=== PATIENT | male | born 1955 | race Two or more races ===

== ENCOUNTER → 2019-02-27 | Day surgery (SDC) | payer OTHER ==
[~2019-02-27] MED LIST: GLUCAGON FOR INJ 1 MG VIAL ONE; HYOSCYAMINE SULFATE 0.5 MG/ML INJ ONE; LIDOCAINE HCL 2% LOCAL INJ 5 ML SDV VIAL INJ ONE; MIDAZOLAM HCL 2 MG/2 ML VIAL ONE; PROPOFOL IV EMULSION 10 MG/ML 50 ML VIAL ONE; ZOLPIDEM TARTRA10 MG PO
[2019-02-27 10:20] VITALS: BP 119/78
--- NOTE | 2019-02-27 13:40 | Operative Report ---
DATE OF PROCEDURE: 02/27/2019 SURGEON: Mirza Mcintosh MD PROCEDURES: Esophagogastroduodenoscopy with biopsies and colonoscopy with polypectomy. INDICATIONS FOR EGD: Upper abdominal pain. INDICATIONS FOR COLONOSCOPY: Colorectal cancer screening. MEDICATIONS: The patient was done under MAC, please see anesthesiologist's note. PROCEDURE IN DETAIL: With the patient in left lateral decubitus position, flexible fiberoptic Olympus gastroscope was introduced into the esophagus under direct visualization without any difficulty. There was some patchy erythema noted in distal esophagus. The scope was then advanced with ease into the stomach. Mucosa overlying the antrum and the body revealed some diffuse erythema and low-grade to moderate edema and biopsies were obtained and sent to stain for H pylori. The pylorus was intubated with ease and the scope was advanced all the way to the second portion of the duodenum. The scope was then withdrawn slowly and biopsies were obtained from the proximal second portion and the duodenal bulb to rule out sprue. The scope was then withdrawn back into the stomach and retroflexed. Mucosa overlying the fundus and cardia appeared to be within normal limits. The scope was then straightened out, it was subsequently withdrawn. The patient tolerated the procedure well. IMPRESSION: 1. Distal esophagitis, mild. 2. Gastritis, biopsied. Biopsies sent to stain for Helicobacter pylori. 3. Rule out sprue. PLAN: Follow up histology. Initiate Protonix 40 mg one p.o. q.a.m. a.c. PROCEDURE IN DETAIL: The patient was then turned around and after adequate lubrication of the anal canal, a flexible fiberoptic Olympus colonoscope was inserted into the rectum with ease and advanced all the way to the cecum. The scope was then withdrawn slowly and mucosa overlying the cecum appeared to be within normal limits. One polyp was noted in the distal ascending colon that was removed per cold snare. The transverse and descending appeared to be within normal limits. One polyp was removed per snare electrocautery in the sigmoid and one polyp was hot biopsied. The rectum grossly appeared to be within normal limits. The scope was then retroflexed into the distal rectum and small internal hemorrhoids were noted, none of which was actively bleeding. The scope was then straightened out, it was subsequently withdrawn. The patient tolerated the procedure well. IMPRESSION: 1. Ascending colon polyp removed per cold snare polypectomy. 2. Sigmoid colon polyps x2, one snared and one hot biopsied. 3. Internal hemorrhoids, none actively bleeding. PLAN: Follow up histology. Initiate high-fiber, low-fat diet. Initiate high-fiber supplement. Start MiraLAX 17 g in a glass of water once daily. The patient might benefit from a followup colonoscopy in 3 years. Mirza Mcintosh MD [facility] [place] /[id number] cc: Yovany Hall DO
--- OUTSIDE RECORDS SUMMARY | 2019-03-02 12:02 | XMS REPORT ---
Author Author [facility] Address Unknown Phone Unavailable Care Team Providers Care [employer] L[employer] Name Role Phone Unavailable Unavailable Payers Payer Name Policy Type Policy Number Effective Date Expiration Date Problems This patient has no known problems. Allergies, Adverse Reactions, Alerts This patient has no known allergies or adverse reactions. Medications This patient has no known medications. Results Test Description Test Time Test Comments Text Results Atomic Results Result Comments - XR C-SPINE 4-5 V 2018-11-10 12:48:00 FAX: Yovany Dawkins DO [phone] [place]: O St: REG Name: [facility] : 1955 Age/S: 62/M [address] [facility] Unit #: [id number] Loc: [place] [address] Phys: Yovany Hall DO Acct: [id number] Dis Date: Status: REG CLI PHONE #: [phone] Exam Date: 11/10/2018 1207 FAX #: [phone] Reason: M54.2 EXAMS: CPT CODE: [id number] XR C-SPINE 4-5 V 33265 HISTORY: M54.2. COMPARISON: None available. Cervical spine series, 5 views: No acute fracture or dislocation. Vertebral body heights are maintained. Narrowed disc space at C6-C7 level. Anterior osteophyte at C6-C7 level. No prevertebral soft tissue swelling. Cervical foramina are widely patent bilaterally. Narrowed uncovertebral joints. Lung apices are clear. Lateral masses are well marginated. IMPRESSION: No acute fracture or dislocation. Vertebral body heights are maintained. Patent foramina. at 1245 Reported and signed by: Arnel Mckinney M.D. CC: Yovany Hall Technologist: ANGELICA Schmidt) Trnscrd Date/Time/By: 11/10/2018 (7129) : By: [email or web address] Orig Print D/T: S: 11/10/2018 (2596) PAGE 1 Signed Report
== END | disposition home or self-care (01) ==
LOC: OR 06:15
PROVIDERS: ATTEND Internal Medicine Gastroenterology
DX: K59.09 Other constipation (principal); D12.2 Benign neoplasm of ascending colon; D12.5 Benign neoplasm of sigmoid colon; K29.50 Unspecified chronic gastritis without bleeding; K20.9 Esophagitis, unspecified; K58.9 Irritable bowel syndrome, unspecified; K21.9 Gastro-esophageal reflux disease without esophagitis; K64.8 Other hemorrhoids; R63.4 Abnormal weight loss; G47.33 Obstructive sleep apnea (adult) (pediatric); Z01.810 Encounter for preprocedural cardiovascular examination
CPT/HCPCS: 43239; 45385; 93005; J1610; J1980; J2001; J2250

== ENCOUNTER → 2019-03-25 | Outpatient (CLI) | payer OTHER ==
[~2019-03-25] MED LIST changes: -GLUCAGON FOR INJ 1 MG VIAL ONE; -HYOSCYAMINE SULFATE 0.5 MG/ML INJ ONE; -LIDOCAINE HCL 2% LOCAL INJ 5 ML SDV VIAL INJ ONE; -MIDAZOLAM HCL 2 MG/2 ML VIAL ONE; -PROPOFOL IV EMULSION 10 MG/ML 50 ML VIAL ONE
--- NOTE | 2019-03-25 17:49 | Diagnostic Imaging Report ---
HISTORY: Postprandial pain ^ABD PAIN TECHNIQUE: Selected images from limited abdominal ultrasound provided for INTERPRETATION: COMPARISON: None. FINDINGS: Pancreas: Visualized portions are normal. No ductal dilatation. Liver: Measures 13.9 cm in sagittal plane. The echotexture is normal. No mass in the visualized portions. Portal Vein: Measures 1.0 cm. Proper directional flow on spectral Doppler interrogation. Biliary Tree: Normal Gallbladder: No evidence of gallstone, sludge or gallbladder wall thickening. Sonographic Fong sign is negative. CBD: 0.3 cm. Right Kidney: 10.0 cm in greatest length. The echotexture is normal. There is no evidence for mass. There is no collecting system dilatation or evidence of obstruction. No renal calculi evident. No adjacent free fluid or fluid collections. Visualized IVC and aorta are poorly visualized due to bowel gas. There is no free fluid. IMPRESSION: No abnormalities to explain abdominal pain. The visualized structures are normal. Signed by: Dr. Justus Sotomayor MD on 03/25/2019 5:46 PM
== END ==
LOC: US 16:50
PROVIDERS: ATTEND Internal Medicine Gastroenterology
DX: R07.89 Other chest pain (principal); R10.9 Unspecified abdominal pain
CPT/HCPCS: 76705

== ENCOUNTER → 2019-03-26 | Outpatient (CLI) | payer OTHER ==
--- NOTE | 2019-03-26 10:55 | Diagnostic Imaging Report ---
Hepatobiliary Scan with Gallbladder Ejection Fraction Clinical information: Chest pain, usually post-prandial Report: Following intravenous administration of 7 millicuries of Tc-99m mebrofenin, dynamic images of the abdomen in the anterior projection were obtained through 60 minutes. Sincalide (CCK analog) 1.5 micrograms was administered intravenously over 30 minutes with additional imaging for determination of gallbladder ejection fraction. Perfusion to the liver is normal. Extraction of tracer from the blood pool by the liver parenchyma is normal. Tracer is seen promptly within the biliary tract. The gallbladder begins to fill by 15 minutes post-injection of tracer and fills adequately. Tracer is seen in the small bowel during the sincalide infusion. The gallbladder ejection fraction with administration of sincalide is 99% (normal greater than 40%). Impression: 1. Filling of the gallbladder excludes the diagnosis of acute cystic duct obstruction/acute cholecystitis. 2. Normal gallbladder ejection fraction of 99% does not support the clinical diagnosis of chronic cholecystitis/gallbladder dyskinesia. Signed by: Dr. Trudi Blas M.D. on 03/26/2019 10:51 AM
== END ==
LOC: NM 07:58
PROVIDERS: ATTEND Internal Medicine Gastroenterology
DX: R07.89 Other chest pain (principal)
CPT/HCPCS: 78226; A9537